=== PATIENT | female | born 1955 ===

== ENCOUNTER → 2020-08-06 13:27 | Outpatient (CLI) | payer OTHER | END | disposition home or self-care (01) | LOC: LAB 13:27 | PROVIDERS: ATTEND Emergency Medicine | DX: R06.02 Shortness of breath (principal); R05 Cough; R50.9 Fever, unspecified; Z03.818 Encounter for observation for suspected exposure to other biological agents ruled out ==

== ENCOUNTER 2022-11-23 11:21 | Outpatient (CLI) | payer OTHER | END 2022-11-23 11:25 | disposition home or self-care (01) | LOC: NUCLEAR 11:21 | PROVIDERS: ATTEND Internal Medicine | DX: I10 Essential (primary) hypertension (principal) ==